=== PATIENT | male | born 1985 | race Caucasian/White ===

== ENCOUNTER 2017-09-05 10:57 | Emergency (ER) | payer OTHER ==
[2017-09-05 11:41] VITALS: BP 138/89; PULSE 87; TEMP 98.2; BMI 35.9
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
== END 2017-09-05 13:09 | disposition home or self-care (01) ==
LOC: JERFT 10:57
DX: S60.812A Abrasion of left wrist, initial encounter (principal); Y35.811A Legal intervention involving manhandling, law enforcement official injured, initial encounter; Y93.89 Activity, other specified; Y92.89 Other specified places as the place of occurrence of the external cause; Y99.0 Civilian activity done for income or pay
CPT/HCPCS: 99281-25

== ENCOUNTER 2018-04-18 12:12 | Emergency (ER) | payer OTHER ==
[2018-04-18 12:18] VITALS: BP 129/90; PULSE 92; TEMP 97.7; BMI 37.3
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
== END 2018-04-18 12:48 | disposition home or self-care (01) ==
LOC: JERFT 12:12
DX: Z77.21 Contact with and (suspected) exposure to potentially hazardous body fluids (principal); Y35.891A Legal intervention involving other specified means, law enforcement official injured, initial encounter; Y93.89 Activity, other specified; Y92.89 Other specified places as the place of occurrence of the external cause; Y99.0 Civilian activity done for income or pay
CPT/HCPCS: 99281-25

== ENCOUNTER 2018-06-18 07:42 | Emergency (ER) | payer OTHER ==
[2018-06-18 07:54] VITALS: BP 152/96; PULSE 99; TEMP 98.5; BMI 36.6
[2018-06-18] MEDS ORDERED: IBUPROFEN 400 MG TABLET (FP) PO ONE ×2 (08:25→08:32)
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
== END 2018-06-18 08:40 | disposition home or self-care (01) ==
LOC: JERFT 07:42
PROC: 2W3RXYZ Immobilization of Left Lower Leg using Other Device (ICD-10-PCS; principal; 2018-06-18)
DX: S83.8X2A Sprain of other specified parts of left knee, initial encounter (principal); Y35.811A Legal intervention involving manhandling, law enforcement official injured, initial encounter; Y93.89 Activity, other specified; Y92.89 Other specified places as the place of occurrence of the external cause; Y99.0 Civilian activity done for income or pay
CPT/HCPCS: 99281-25

== ENCOUNTER 2021-08-08 13:08 | Emergency (ER) | payer OTHER, BC ==
[2021-08-08] MEDS ORDERED: DIPHTH,PERTUSS(ACELL),TET 0.5 ML DISP.SYRIN IM ONE ×2 (13:25→13:36)
[2021-08-08 13:54] VITALS: BP 140/91; PULSE 112; TEMP 99.4; BMI 38.7
== END 2021-08-08 14:31 | disposition home or self-care (01) ==
LOC: FER 13:08
PROC: 3E0234Z Introduction of Serum, Toxoid and Vaccine into Muscle, Percutaneous Approach (ICD-10-PCS; principal; 2021-08-08)
DX: S60.312A Abrasion of left thumb, initial encounter (principal); Y04.8XXA Assault by other bodily force, initial encounter
CPT/HCPCS: 90715; 99284-25

== ENCOUNTER 2022-06-25 16:14 | Emergency (ER) | payer OTHER ==
[2022-06-25 16:21] VITALS: BP 138/89; PULSE 118; RESP 18; TEMP 99.5; BMI 38.7
== END 2022-06-25 17:07 | disposition home or self-care (01) ==
LOC: FER 16:14
DX: M79.602 Pain in left arm (principal); V03.10XA Pedestrian on foot injured in collision with car, pick-up truck or van in traffic accident, initial encounter
CPT/HCPCS: 99281-25

== ENCOUNTER 2023-04-28 12:36 | Emergency (ER) | payer OTHER ==
[2023-04-28 12:46] VITALS: BP 138/94; PULSE 104; RESP 18; TEMP 99.4; BMI 38.7
== END 2023-04-28 13:30 | disposition home or self-care (01) ==
LOC: FER 12:36
DX: M25.561 Pain in right knee (principal); W51.XXXA Accidental striking against or bumped into by another person, initial encounter
CPT/HCPCS: 99282-25